=== PATIENT | male | born 1965 | race Caucasian/White ===

== ENCOUNTER 2022-11-27 10:37 | Emergency (ER) | payer BC, SELFPAY ==
[2022-11-27] VITALS (7 sets, daily range): BP systolic 117–159; BP diastolic 71–79; PULSE 59–71; RESP 16–17; TEMP 36.8; O2SAT 96–100
--- NOTE | 2022-11-27 10:46 | ECG_ITS ---
Measurements Intervals [place] Rate: 68 P: 57 NE: 173 QRS: 37 QRSD: 112 T: 65 QT: 421 QTc: 450 Interpretive Statements SINUS RHYTHM VENTRICULAR PREMATURE COMPLEX INTRAVENTRICULAR CONDUCTION DELAY MINIMAL Q WWAVES- LATERAL LEADS BORDERLINE T WAVE ABNORMALITY- LAT/HIGH LAT LEADS BASELINE ARTIFACT- I, II, III, AVR, AVL, AVF BORDERLINE ECG NO PREVIOUS ECG AVAILABLE FOR COMPARISON Electronically Signed On 11-27-2022 11:15:45 CDT by Ford Gavin D.O.
[2022-11-27 11:03] LABS: Basophils Absolute Auto 0.1 K/mm3 (0.0-0.1); Basophils Percent Auto 0.7 % (0.2-1.2); Eosinophils Absolute Auto 0.1 K/mm3 (0-0.3); Eosinophils Percent Auto 0.9 % (0-4.4); Hemoglobin 16.6 g/dL (14.0-18.0); Immature Granulocyte Absolute 0.02 K/mm3 (0.00-0.031); Immature Granulocyte Percent A 0.3 % (0-0.5); Lymphocytes Percent Auto 31.6 % (18.3-44.2); Mean Corpuscular HGB Conc 35.3 g/dl (32-36); Mean Corpuscular Hemoglobin 34.7 pg (26-34); Mean Corpuscular Volume 98.1 fl (80-100); Mean Platelet Volume 9.3 fl (7.4-10.4); Monocytes Absolute Auto 0.6 K/mm3 (0.1-0.6); Monocytes Percent Auto 7.6 % (2.6-8.5); Neutrophils Absolute Auto 4.5 K/mm3 (1.3-6.7); Neutrophils Percent Auto 58.9 % (45.5-73.1); Platelet Count Result 207 k/mm3 (150-375); Red Blood Count 4.79 M/mm3 (4.6-6.20); Red Cell Distribution Width 13.8 % (11.5-14.5); White Blood Count 7.6 K/mm3 (4.5-10.0)
[2022-11-27 11:15] LABS: Alanine Aminotransferase 58 U/L (6-50); Albumin Level 4.5 g/dL (3.5-5.1); Alkaline Phosphatase 111 U/L (38-126); Anion Gap 9 mmol/L (8-16); Aspartate Amino Transferase 56 U/L (17-59); Bilirubin,Total 1.2 mg/dL (0.2-1.3); Blood Urea Nitrogen 17 mg/dL (9-20); Carbon Dioxide 28 mmol/L (22-30); Chloride 101 mmol/L (98-107); Estimated CRCL calculation 54 ml/min; Estimated Glomerular Filt Rate 48; Glucose 135 mg/dL (65-110); Potassium 4.4 mmol/L (3.4-5.0); Sodium 138 mmol/L (137-145)
--- NOTE | 2022-11-27 11:55 | ED.GENADULT ---
HPI - General Adult General Chief complaint: Syncope Stated complaint: near syncope Time Seen by Provider: 11/27/22 10:40 History of Present Illness HPI narrative: Patient is a 57-year-old male who presents ER with lightheadedness. He was at work and was bending over picking something up and when he stood up he felt like everything was going dark and he may pass out. This occurred twice. No change in oral intake. No chest pain or shortness of breath. No palpitations. No numbness or weakness in arm or leg. Related Data Home Medications Medication Instructions Recorded Confirmed clopidogrel 75 mg tablet 75 mg PO DAILY 07/04/19 07/04/19 losartan 50 mg tablet 50 mg PO DAILY 07/04/19 07/04/19 nebivolol 20 mg tablet (Bystolic) 20 mg PO DAILY 07/04/19 07/04/19 Allergies Allergy/AdvReac Type Severity Reaction Status Date / Time bacitracin Allergy Severe could not Verified 11/27/22 10:45 breath POLYMYXIN B SULFATE Allergy Severe could not Uncoded 11/27/22 10:45 breath Review of Systems Review of Systems: All systems reviewed & are unremarkable except as noted in HPI and below Constitutional: Constitutional: Denies chills, Denies fatigue and Denies fever(s) Cardiovascular: Cardiovascular: Denies chest pain, Denies rapid heart rate and Denies radiating jaw, neck or arm pain Respiratory: Respiratory: Denies cough and Denies dyspnea Gastrointestinal: Gastrointestinal: Denies abdominal pain, Denies nausea and Denies vomiting Exam Narrative: GENERAL: Well-appearing, well-nourished, and in no acute distress. HEAD: Normocephalic, atraumatic. EYES: PERRL and EOMI. ENT: Mucous membranes moist. CHEST: Clear to auscultation. No respiratory distress. HEART: Regular rate and rhythm. Normal peripheral pulses. EXTREMITIES: Normal range of motion. No edema. SKIN: Warm, dry, no rash. NEURO: Alert and oriented x3. PSYCH: Normal mood and affect. Course Course Emergency Course: Patient resting comfortably. Slight drop in blood pressure with orthostatics. No symptoms. Patient hydrated. Creatinine slightly elevated but there is no elevation in the BUN. Patient felt to be slightly dry. Recommend follow-up with PCP and encouraged hydration. Vital Signs Vital signs: Vital Signs Temperature 98.2 F 11/27/22 10:42 Pulse Rate 68 11/27/22 10:42 Respiratory Rate 16 11/27/22 10:42 Blood Pressure 128/71 11/27/22 10:42 Pulse Oximetry 100 11/27/22 10:42 Oxygen Delivery Room Air 11/27/22 10:42 Temperature 98.2 F 11/27/22 10:42 Pulse Rate 59 L 11/27/22 12:51 Respiratory Rate 16 11/27/22 12:51 Blood Pressure 159/73 H 11/27/22 12:51 Pulse Oximetry 100 11/27/22 12:51 Oxygen Delivery Room Air 11/27/22 11:00 Medical Decision Making Vital Signs Vital Signs: Vital Signs Temperature 98.2 F 11/27/22 10:42 Pulse Rate 68 11/27/22 10:42 Respiratory Rate 16 11/27/22 10:42 Blood Pressure 128/71 11/27/22 10:42 Pulse Oximetry 100 11/27/22 10:42 Oxygen Delivery Room Air 11/27/22 10:42 Temperature 98.2 F 11/27/22 10:42 Pulse Rate 59 L 11/27/22 12:51 Respiratory Rate 16 11/27/22 12:51 Blood Pressure 159/73 H 11/27/22 12:51 Pulse Oximetry 100 11/27/22 12:51 Oxygen Delivery Room Air 11/27/22 11:00 Lab Data 11/27/22 10:50 11/27/22 10:50 Labs: Lab Results 11/27/22 11/27/22 Range/Units 10:50 10:50 WBC 7.6 (4.5-10.0) K/mm3 RBC 4.79 (4.6-6.20) M/mm3 Hgb 16.6 (14.0-18.0) g/dL Hct 47.0 (42.0-52.0) % MCV 98.1 (80-100) fl MCH 34.7 H (26-34) pg MCHC 35.3 (32-36) g/dl RDW 13.8 (11.5-14.5) % Plt Count 207 (150-375) k/mm3 MPV 9.3 (7.4-10.4) fl Immature Gran % (Auto) 0.3 (0-0.5) % Neut % (Auto) 58.9 (45.5-73.1) % Lymph % (Auto) 31.6 (18.3-44.2) % [place] % (Auto) 7.6 (2.6-8.5) % Eos % (Auto) 0.9 (0-4.4) % Baso % (Auto) 0.7 (0.2-1.2) % Lymph # (Auto) 2.
== END 2022-11-27 12:52 | disposition home or self-care (01) ==
PROVIDERS: Emergency Provider Emergency Medicine
DX: E86.0 Dehydration (principal); I49.3 Ventricular premature depolarization; I45.9 Conduction disorder, unspecified; R94.31 Abnormal electrocardiogram [ECG] [EKG]
CPT/HCPCS: 36415; 80053; 85025; 93005; 99283

== ENCOUNTER 2024-07-17 14:47 | Emergency (ER) | payer MEDICAID, SELFPAY ==
[2024-07-17 15:01] VITALS: BP 159/90; PULSE 78; RESP 16; TEMP 36.6; O2SAT 97
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
== END 2024-07-17 15:25 | disposition home or self-care (01) ==
PROVIDERS: Emergency Provider Nurse Practitioner; PCP Hospitalist
DX: I89.0 Lymphedema, not elsewhere classified (principal); D68.51 Activated protein C resistance; I10 Essential (primary) hypertension; Z79.01 Long term (current) use of anticoagulants
CPT/HCPCS: 99213; G0463